=== PATIENT | male | born 1980 | race Caucasian/White ===

== ENCOUNTER 2018-02-15 09:53 | Day surgery (SDC) | payer MEDICAID, SELFPAY ==
[2018-02-15 10:04] VITALS: BP 113/74; PULSE 60; RESP 16; TEMP 35.9; O2SAT 99
[2018-02-15] MEDS: Lactated Ringers 1,000 ML 30 ML IV (10:15)
--- NOTE | 2018-02-15 11:15 | W.PM.DSUDISC ---
Discharge Plan Disposition Patient Disposition: HOME Condition: Good Discharge Details Reason For Visit: Weight loss, abdominal pain, nausea, and vomiting Attending Provider: Donovan Alonzo Primary Care Provider: Rhonda Bardales Home Meds and New Rx's Prescriptions: Continue loperamide [Imodium A-D] 2 MG capsule 2 mg PO QID PRN RF: 0 ondansetron HCl [Zofran] 4 MG tablet 4 mg PO PRN RF: 0 diphenhydramine HCl [Benadryl] 25 MG capsule 25 mg PO prn q 6 hrs PRNRF: 0 simethicone 80 MG tablet,chewable 80 mg PO q 6 hrs RF: 0 Discharge Instructions Instructions: Colonoscopy (DC), Upper Endoscopy (DC) Activity:: Activity as Tolerated Diet:: As Tolerated Discharge Orders Discharge Orders: Discharge Order (Routine); Ordered 02/15/18 Ordered By: Donovan Alonzo DS: Diagnosis Discharge Diagnosis (1) Nausea and vomiting in adult: Status: Acute Asessment and Plan: Upper endoscopy planned (2) Chronic generalized abdominal pain: Status: Acute Asessment and Plan: colonoscopy planned (3) Weight loss: Status: Acute Asessment and Plan: Endoscopy planned
--- NOTE | 2018-02-15 11:21 | COLE_ITS ---
Date of service: 02/15/18 Time of Service: 11:20 Colonoscopy Report Date of procedure: 02/15/18 Pre-op diagnosis general: Abdominal pain, nausea, and pain Post-op diagnosis procedure note: same Procedure: 1. Esophagogastroduodenoscopy with biopsies by cold forceps 2. Colonoscopy with biopsies by cold forceps Surgeon: Donovan Alonzo Anesthesia proc note operative: MAC (CYNDEE Pineda ASA 2; Mallampati class: II) Estimated blood loss (mL): 1 Pathology: other (1. Duodenal bx 2. Gastric antral bx 3. Mid esophageal bx 4. Terminal ileum bx, 5. Random Colon bx 6. Random rectum.) Complications: None Disposition: same day Indications: 37 y/o gentleman who has had over a year of daily abdominal with associated nausea and vomiting, which has led to weight loss. The abdominal pain is relieved by having a bowel movement. He has tried antiemetics with little relief, It is made worse by lactose, and many other dietary claude. He has had endoscopy in the past, which was unremarkable by his report. Associated symptoms: Reports diarrhea, vomiting, and weight loss. It was recommended that he have upper and lower endoscopy with biopsies to rule out any GI etiology to her symptoms. The procedures were reviewed with him and the associated risks discussed. All his questions were answered to his satisfaction consent was obtained to proceed with upper and lower endoscopy. Prep: Miralax/Dulcolax (Prep quality excellent) Findings: In examining the upper gastrointestinal tract from the oropharynx to the third portion of the duodenum, no gross abnormalities were visualized; biopsies were taken from the duodenum, stomach, and esophagus. The colon was examined from the cecum to the anus, and a small portion of the terminal ileum was visualized. No gross abnormalities were noted during the examination. Random biopsies were taken from the terminal ileum, colon, and rectum which were submitted for pathology. Procedure Description: The patient was brought to the procedure room. Monitoring for telemetry, end- tidal CO2, O2 saturation, blood pressure were applied. An appropriate timeout was taken reviewing the patient's identification, allergies, medications,and procedure. Sedation was titrated for effect by the [employer]. The upper endoscopy was performed first. An Olympus variable stiffness endoscope was advanced from the oropharynx to the third portion of the duodenum without difficulty. The scope was then withdrawn in circumferential manner from the duodenum back to the oropharynx. In performing withdrawal of the scope , the duodenum appeared grossly normal. The scope was withdrawn into the gastric antrum and retroflexed to examine the entire stomach, and no abnormalities of the gastric antrum, anterior, posterior surfaces of the stomach , lesser curvature, greater curvature, and fundus were noted. The scope was then withdrawn to the GE junction which I measured at 38cm The Z line was at 38 cm and appeared regular. I withdrew the scope through the remainder of the esophagus all which appeared grossly normal. I did take random biopsies of the duodenum, gastric antrum, and mid esophagus during the procedure which were submitted to for pathology. The scope was then withdrawn terminating the upper endoscopy. The patient was then repositioned for colonoscopy. Sedation was titrated for effect again. Once adequate sedation was achieved, I performed a inspection of the external perineum, and a digitial rectal examination. No significant external abnormalities were noted. On digital rectal examination, there was no blood, no masses, good rectal tone. I advanced the colonoscope from the anus to the cecum under direct visualization. The cecum was identified by the ileal-cecal valve, and the appendiceal orifice. The ileocecal valve was intubated, and the small bowel ( terminal ileum) was examined for about 15 cm. Random biopsies were taken from the terminal ileum. The scope was then withdrawn in back into the cecum, and subsequently withdrawn in a circumferential manner from the cecum to the rectum. No abnormalites were noted in the colon; random biopsies were taken throughout the colon.. The scope was then withdrawn into the rectum, and retroflexed. No abnormalities were noted of the rectum or anorectal junction, again random biopsies were taken through of the rectum for pathology.. The scope was then withdrawn, terminating the procedure. There were no complications during the procedure, and the patient tolerated the procedure well. The patient was returned to the day surgery recovery area in good condition. Plan: We will await pathology results before making further recommendations.
--- NOTE | 2018-02-15 11:45 | BOWEL_PTH ---
PATIENT: Philip Allred LOC: [facility] U#:[id number] AGE/SX: 37/M ROOM: RE02/15/[address]: Donovan Alonzo DO : 1980 BED: DIS: 02/15/2018 SPEC #: [id number] RECD: 02/15/18 17:48 STATUS: ÁNGELA REQ #: [id number] JOSY: 02/15/18 11:[address]: Donovan Alonzo DEPT: Surgical Specimen RECD BY: Eloise Love ENTERED: 02/15/18 17:50 SP TYPE: Bowel OTHR DR: Rhonda Bardales Tissues: 1 - BIOPSY BOWEL 2 - STOMACH BIOPSY 3 - ESOPHAGUS BIOPSY 4 - BIOPSY BOWEL 5 - BIOPSY BOWEL 6 - BIOPSY BOWEL Procedures: GROSS AND MICRO LEVEL 4 Comments: [id number]
[2018-02-15 12:45] VITALS: BP 138/61; PULSE 68; RESP 17; TEMP 36.7; O2SAT 97
[2018-02-15 12:50] VITALS: BP 127/61; PULSE 64; RESP 18; O2SAT 100
[2018-02-15 12:55] VITALS: BP 132/65; PULSE 62; RESP 18; O2SAT 100
[2018-02-15 13:00] VITALS: BP 128/61; PULSE 55; RESP 12; O2SAT 100
[2018-02-15 13:55] VITALS: BP 108/66; PULSE 62; RESP 16; TEMP 37; O2SAT 99
== END 2018-02-15 14:23 | disposition home or self-care (01) ==
PROVIDERS: PCP Emergency Medicine; Visit Provider Surgery
PROC: (CPT 43239; principal; 2018-02-15 12:00)
DX: R10.9 Unspecified abdominal pain (principal); R11.0 Nausea
CPT/HCPCS: 43239; 45380; 88305

== ENCOUNTER 2018-05-17 11:28 | Emergency (ER) | payer MEDICAID, SELFPAY ==
[2018-05-17 11:30] VITALS: BP 128/68; PULSE 77; RESP 20; TEMP 37.2; O2SAT 99
[2018-05-17] MEDS: Normal Saline 1,000 ML 1000 ML IV ×2 (11:49→12:57)
--- NOTE | 2018-05-17 11:52 | DI.RAD_ITS ---
SYMPTOM/DIAGNOSIS: COUGH, FEVER PA AND LATERAL CHEST: There are no prior comparison exams. The cardiac and mediastinal contours have a normal appearance. The lungs are mildly hyperinflated which could indicate asthma or COPD. No focal infiltrate or effusion is seen. IMPRESSION: Hyperinflation. No acute infiltrate.
[2018-05-17] MEDS: Ibuprofen 600 MG TAB PO (11:54)
[2018-05-17] MEDS: Acetaminophen 500 MG TAB 1000 MG PO (11:54)
[2018-05-17] MEDS: Benzonatate 100 MG CAP PO (11:54)
[2018-05-17] MEDS: Ondansetron O.D.T. 4 MG TABEF PO (11:55)
[2018-05-17 11:56] LABS: Abs Immature Grans 0.01 k/cumm (0.0-0.09); Absolute Basophil Count 0.01 k/cumm (0.0-0.2); Absolute Lymphocyte Count 0.58 k/cumm (1.2-3.4); Absolute Monocyte Count 0.99 k/cumm (0.11-0.7); Absolute Neutrophil Count 5.82 k/cumm (1.2-6.7); Basophils % 0.1; HCT 44.3 % (40.0-50.0); HGB 15.7 g/dL (13.5-17.5); Immature Grans % 0.1; Lymphocytes % 7.8; Mean Corp. HGB Concentration 35.4 g/dL (32.0-36.0); Mean Corpuscular Hemoglobin 31.5 pg (27.0-33.0); Mean Platelet Volume 10.4 fL (8.0-11.0); Monocytes % 13.4; Neutrophils % 78.6; Platelet Count 162 x1000/uL (130-400); RBC 4.98 m/cumm (4.50-6.00); RBC Distribution Width 12.9 % (11.8-14.1); White Blood Cell Count 7.41 k/cumm (4.4-10.8)
[2018-05-17 12:09] LABS: ALT 24 U/L (12-78); AST 24 U/L (15-37); Albumin 4.5 g/dL (3.4-5.0); Alkaline Phosphatase 66 U/L (46-116); BUN 18 mg/dL (7-18); Bilirubin, Total 0.7 mg/dL (0.2-1.0); CREATININE 1.56 mg/dL (0.70-1.30); Calcium 9.7 mg/dL (8.5-10.1); Chloride 98 mmol/L (98-107); Estimated GFR 50.06 (mL/min/1.73m2); Glucose 102 mg/dL (70-100); Potassium 3.5 mmol/L (3.5-5.1); Sodium 139 mmol/L (136-145)
[2018-05-17 12:13] VITALS: RESP 16
--- NOTE | 2018-05-17 12:15 | ED.GENADUL_ITS ---
Discharge Plan Disposition Patient Disposition: HOME Condition: Stable Discharge Details Chief Complaint: GenMedical Clinical Impression: Influenza A Reason For Visit: ANGELO Primary Care Provider: Harleen Bardales ED Provider: Roberto Cortez Home Meds and New Rx's Prescriptions: New benzonatate 200 mg capsule 200 mg PO TID PRN (Reason: cough) Qty: 30 RF: 0 ondansetron 4 mg tablet,disintegrating 4 mg PO TID PRN (Reason: nausea and vomiting) Qty: 10 RF: 0 Continued loperamide [Imodium A-D] 2 MG capsule 2 mg PO QID PRN RF: 0 diphenhydramine HCl [Benadryl] 25 MG capsule 25 mg PO prn q 6 hrs PRNRF: 0 simethicone 80 MG tablet,chewable 80 mg PO q 6 hrs RF: 0 Discontinued ondansetron HCl [Zofran] 4 MG tablet 4 mg PO PRN RF: 0 Discharge Instructions Instructions: Influenza (ED) Additional Instructions: During viral illness please stay well-hydrated and get plenty of rest. Feel free to return for any significant worsening of your symptoms otherwise follow- up with your primary care provider for reassessment. For fever or body aches you may take 600 mg ibuprofen along with 650 mg of Tylenol together every 6 hours as needed. Referrals: Harleen Bardales MD [Primary Care Provider] - (As needed for reassessment) Medical Decision Making Patient presenting to the emergency department for flulike symptoms. He states that his girlfriend was recently admitted for similar symptoms. He states that he began running a fever approximately 5 days ago and has had continuing and p rogressing symptoms including cough, fever chills body aches, headache, malaise, vomiting. Concern for influenza with secondary electrolyte abnormalities and/or dehydration so plan to give IV fluids, check labs, and give symptomatic medications. Patient given Tylenol, Motrin, Tessalon Perles, Zofran Review of labs shows signs of dehydration and positive influenza otherwise nondiagnostic. Patient reassessed and states significant improvement of symptoms and patient is now afebrile after 2 L of fluids. Given the patient is improving feels comfortable going home I feel the patient can safely be discharged follow-up with primary care return for new or worsening symptoms. Patient was encouraged to stay well-hydrated during illness. Patient prescribed Tessalon Perles and Zofran and instructed on [id number] use of Tylenol and Motrin. Given that patient has had symptoms for greater than 48 hours I see little benefit to giving patient Tamiflu but I did discuss this with patient. After discussion of diagnosis and plan of care patient has no further needs, questions, or concerns and states clear understanding to return to the emergency department for any worsening symptoms. ECG Data Interpretation: Sinus rhythm, rate of 82, no acute ST changes HPI General Mode of arrival: EMS . Date/Time Provider Initiated Documentation: 05/17/18 11:39 . Limitations to Documentation: no limitations . Information obtained by: patient and RN notes reviewed . History of Present Illness 37 year old M presents to the emergency department with the chief complaint of Flulike symptoms, described as moderate, with intensity rated at 4. Quality is described as aching, and is localized to the abdomen. Patient reports no radiation. Patient started experiencing this day(s) (5) and it has been constant. Patient notes no other symptoms.. Patient did receive the following treatments prior to arrival, other (Robitussin-DM last night) Related Data Home Medications Medication Instructions Recorded Confirmed diphenhydramine HCl [Benadryl] 25 mg PO prn q 6 hrs PRN 01/11/18 02/11/18 loperamide [Imodium A-D] 2 mg PO QID PRN 01/11/18 02/11/18 simethicone 80 mg PO q 6 hrs tab.chew 01/11/18 02/11/18 benzonatate 200 mg PO TID PRN #30 cap 05/17/18 ondansetron 4 mg PO TID PRN #10 tab 05/17/18 Previous Rx's Medication Instructions Recorded benzonatate 200 mg PO TID PRN #30 cap 05/17/18 ondansetron 4 mg PO TID PRN #10 tab 05/17/18 Allergies Allergy/AdvReac Type Severity Reaction Status Date / Time ibuprofen AdvReac Intermediate porphyria Verified 02/15/18 10:03 sulfamethoxazole AdvReac Intermediate porhyria Verified 02/15/18 10:03 [From Bactrim] trimethoprim [From Bactrim] AdvReac Intermediate porhyria Verified 02/15/18 10:03 General Stated Complaint: GenMedical ALAN: 3 Review of Systems Constitutional Reports body ache(s), Reports chills, Reports fever(s), Reports headache(s) and Reports malaise Eyes Denies eye discharge ENT Reports as per HPI, Denies otalgia, Reports headache(s), Reports nasal congestion, Denies neck pain, Reports sinus pressure and Denies throat swelling Cardiovascular Denies chest pain, Reports rapid heart rate, Reports palpitations and Denies dyspnea Respiratory Reports chest congestion, Reports cough, Reports pain with cough and Denies dyspnea Gastrointestinal Reports abdominal pain, Denies diarrhea, Reports nausea and Reports vomiting Musculoskeletal Denies joint swelling and Denies neck pain Integumentary/Breasts Denies rash Neurologic Reports headache(s) Endocrine Reports palpitations Allergic/Immunologic Denies throat swelling [facility] Medical History Normal colonoscopy (Resolved 02/15/18) Porphyria Schizophrenia Unintentional weight loss Surgical History History of esophagogastroduodenoscopy (EGD) (Resolved 02/15/18) Social History Smoking/Tobacco Use Status: Never alcohol intake: never substance use type: marijuana Exam Const General: cooperative, comfortable and no acute distress Orientation: alert and awake [facility] Head: normal to inspection, normocephalic and atraumatic Ears: hearing grossly normal bilaterally and TM's normal bilaterally General nose exam: external nose normal Face and sinus: normal facial exam and no erythema Mouth: oral mucosae normal, no drooling, no muffled voice and no trismus Throat: posterior oropharynx normal, tonsils normal and uvula midline Neck Neck: normal visual inspection, full ROM, no lymphadenopathy, no meningeal signs, trachea midline and supple Resp Effort & Inspection: normal respiratory effort, able to speak in complete sentences and cough Quality of cough: dry Auscultation: clear to auscultation bilaterally Cardio Rate: regular rate Rhythm: regular rhythm Heart Sounds: S1 normal, S2 normal, normal S1 and S2, no click, no gallops, no murmurs and no rubs GI Inspection: normal to inspection Palpation: soft and no hepatosplenomegaly Auscultation: normal bowel sounds Skin General skin exam: no rashes or lesions noted and dry skin (warm) Neuro General: alert, awake, oriented x3, gait normal and moves all extremities Cognition: normal cognition Speech: speech normal Course Vital Signs Temperature 37.2 C 05/17/18 11:30 Pulse 77 05/17/18 11:30 Respiratory Rate 20 05/17/18 11:30 Blood Pressure 128/68 05/17/18 11:30 Pulse Oximetry 99 05/17/18 11:30 Temperature 37.2 C 05/17/18 11:30 Temperature Source Temporal Artery Scan 05/17/18 11:30 Pulse 77 05/17/18 11:30 Respiratory Rate 20 05/17/18 11:30 Respiratory Effort Non-Labored 05/17/18 12:13 Blood Pressure 128/68 05/17/18 11:30 Blood Pressure Position Sitting 05/17/18 11:30 Pulse Oximetry 99 05/17/18 11:30 Oxygen Delivery Method Room Air 05/17/18 11:30 Oxygen Flow Rate 0 05/17/18 11:30 Pain Level 0 05/17/18 11:30 Lab/Test Results Lab/Test Results: 05/17/18 11:34 Nasopharynx Influenza Types A,B Antigen - Final Laboratory Tests Range/Units 05/17/18 05/17/18 11:42 11:42 WBC (4.4-10.8) k/cumm 7.41 RBC (4.50-6.00) m/cumm 4.98 Hgb (13.5-17.5) g/dL 15.7 Hct (40.0-50.0) % 44.3 MCV (80-95) fL 89.0 MCH (27.0-33.0) pg 31.5 MCHC (32.0-36.0) g/dL 35.4 RDW (11.8-14.1) % 12.9 Plt Count (130-400) x1000/uL 162 MPV (8.0-11.0) fL 10.4 Immature Gran % 0.1 Neutrophils % 78.6 Lymphocytes % 7.8 Monocytes % 13.4 Eosinophils % 0.0 Basophils % 0.1 Absolute Neutrophils (1.2-6.7) k/cumm 5.82 Absolute Lymphocytes (1.2-3.4) k/cumm 0.58 L Absolute Monocytes (0.11-0.7) k/cumm 0.99 H Absolute Eosinophils (0.0-0.7) k/cumm 0.00 Absolute Basophils (0.0-0.2) k/cumm 0.01 Sodium (136-145) mmol/L 139 Potassium (3.5-5.1) mmol/L 3.5 Chloride (98-107) mmol/L 98 Carbon Dioxide (21.0-32.0) mmol/L 26.0 Anion Gap (3-11) mmol/L 15.0 H BUN (7-18) mg/dL 18 Creatinine (0.70-1.30) mg/dL 1.56 H Estimated GFR/1.73 m2 (mL/min/1.73m2) 50.06 Glucose (70-100) mg/dL 102 H Calcium (8.5-10.1) mg/dL 9.7 Total Bilirubin (0.2-1.0) mg/dL 0.7 AST (15-37) U/L 24 ALT (12-78) U/L 24 Alkaline Phosphatase (46-116) U/L 66 Total Protein (6.4-8.2) g/dL 8.0 Albumin (3.4-5.0) g/dL 4.5
[2018-05-17 12:18] VITALS: TEMP 38.7
--- NOTE | 2018-05-17 12:53 | DI.VRAD_ITS ---
EXAM: XR Chest, 2 Views EXAM DATE/TIME: 05/17/2018 12:27 PM CLINICAL HISTORY: 37 years old, male; Signs and symptoms; Cough and fever; Patient HX: Cough/fever TECHNIQUE: XR of the chest, 2 views. COMPARISON: No relevant prior studies available. FINDINGS: Lungs: Unremarkable. No consolidation. Pleural space: Unremarkable. No pleural effusion. No pneumothorax. Heart/Mediastinum: Unremarkable. No cardiomegaly. Bones/joints: Unremarkable. IMPRESSION: 1. The lungs are hyperaerated and hyperlucent with increase in the retrosternal airspace. 2. Changes of reactive airway disease, COPD versus possible asthma. COMMENT: Preliminary interpretation is based on receipt of 3 image(s). A final report will be issued subsequently. Dictated and Authenticated by: Dilma Caballero MD. Ordering:CARMEN Mejia MD
[2018-05-17 13:55] VITALS: BP 116/66; PULSE 61; RESP 14; TEMP 37.1; O2SAT 99
== END 2018-05-17 13:56 | disposition home or self-care (01) ==
PROVIDERS: Emergency Provider Nurse Practitioner Family; PCP Family Medicine
DX: J11.1 Influenza due to unidentified influenza virus with other respiratory manifestations (principal); R00.0 Tachycardia, unspecified
CPT/HCPCS: 36415; 80053; 87449; 93005; 96360; 96361; 99284; 71046; 85025; 93010

== ENCOUNTER 2019-09-22 00:19 | Emergency (ER) | payer MEDICAID, SELFPAY ==
[2019-09-22 00:24] VITALS: BP 126/55; PULSE 72; RESP 16; TEMP 37.2; O2SAT 97
--- NOTE | 2019-09-22 00:40 | ED.GENADUL_ITS ---
Discharge Plan Disposition Patient Disposition: HOME Condition: Good Discharge Details Chief Complaint: Abd Prob Clinical Impression: Rectal bleed Primary Care Provider: Harleen Bardales ED Provider: Sudheer Gregg Home Meds and New Rx's Prescriptions: No Action No Known Home Meds RF: 0 Discharge Instructions Instructions: Rectal Bleeding (ED) Additional Instructions: At this time your hemoglobin and blood levels are normal. There is no evidence of bleeding currently. Please avoid any spicy foods. Monitor your bowel movements closely. We will schedule follow-up with surgery for you. You will be contacted by their office. If you notice any worsening of your symptoms, or any new symptoms such as vomiting, diarrhea, fever, chills, shortness of breath, chest pain, numbness, weakness, or fainting , please return immediately to the emergency department for reevaluation. Please follow up with your primary care provider as soon as possible for reassessment and reevaluation. As always, it was a pleasure participating in your medical care today. Referrals: Ara Magdaleno MD [ [facility] STAFF PHYSICIAN] - Capri Naranjo MD [ [facility] STAFF PHYSICIAN] - Danni Singleton DO [OSTEOPATHIC DOCTOR] - Medical Decision Making 39-year-old male with a history of chronic abdominal pain secondary porphyria, with multiple negative work-ups and colonoscopies presents for bright red blood per rectum. He states that he has had small amounts of bright red blood for the last year, he has had one episode earlier today which was notably larger than normal, this occurred while moving furniture, the repeat episode tonight. He denies any syncope lightheadedness or history of bleeding diatheses. He denies any change in abdominal pain, denies any abdominal tenderness at this time. No food changes, or other complaints. Exam demonstrates a notably nonsurgical abdomen, vital signs are unremarkable with no evidence of tachycardia or hypotension. Rectal exam demonstrates no evidence of searing or burning pain, no blood on digital rectal exam, and a negative stool Hemoccult. Differential includes potential ruptured hemorrhoid which no longer be visualized, less likely Crohn's or ulcerative colitis. At this time with an unremarkable exam, stable vital signs, will get laboratory work-up to evaluate for any signs of anemia. Recommend outpatient surgical follow-up with 1 of her surgeons here. We did discuss radiographic imaging, and at this time through shared decision making process we will hold off on any additional imaging at this time. 1:37 AM Laboratory work-up is returned, no significant abnormalities, hemoglobin stable, no signs of anemia. No white count, no left shift or bandemia. Electrolytes stable. Renal function good, no atypical BUN/creatinine level to suggest upper GI bleed. Coagulation factors within normal limits. Stool Hemoccult negative for any evidence of blood. Patient still remains asymptomatic, vital signs stable. This time his symptoms may have been from mild ruptured hemorrhoid, less likely small ulcer. We will schedule outpatient follow-up with surgery. Patient with like to hold off on imaging at this time otherwise. I do feel that a colonoscopy outpatient would certainly be beneficial. With no signs of acute life-threatening bleed, stable hemodynamics, patient will be discharged. I have extensively reviewed the treatment plan and discharge instructions with the patient. I have addressed all patient concerns at this time. The patient was made aware of what symptoms to monitor for that would warrant a return to the emergency department. Discussed the plan with the patient, they demonstrate verbal understanding and agreement with our assessment and plan at this time. HPI General Date/Time Provider Initiated Documentation: 09/22/19 00:26 . HPI Narrative: 39-year-old male with a past medical history of porphyria, chronic generalized abdominal pain, schizophrenia, who presents today for evaluation of bright red blood per rectum. Patient states that for the last year he has had small amounts of bright red blood occasionally in his stool. Patient states showed intermittent small amounts of bright red blood per rectum for the last year, however today while moving some furniture he noticed a slightly larger amount of bright red blood without a bowel movement, no associated significant cramping pain or burning. And then later this evening he went to have a bowel movement and noticed that it was all bright red blood. Mild amount. No significant pain or other abnormalities at this time. He has had previous colonoscopies, states that the most recent one was a year ago and it was unremarkable. Per our records we have 1 from 2017 which all biopsies were also negative at that time. He states that he has had significant testing on an outpatient basis at other facilities including in [facility] to evaluate for ulcerative colitis, Crohn's, celiac sprue, all of which is negative. He does admit to some mild fatigue, but denies any other complaints. He denies any vomiting, rectal burning tearing or searing pain, fever, chills, change in his chronic abdominal crampiness whatsoever, or other complaints. Patient has had no more rectal bleeding this evening, denies any history of bleeding diatheses. He denies fever, chills, headache, numbness tingling weakness chest pain shortness of breath. Related Data Home Medications Medication Instructions Recorded Confirmed Unknown [No Known Home Meds] 09/22/19 09/22/19 Allergies Allergy/AdvReac Type Severity Reaction Status Date / Time ibuprofen AdvReac Intermediate porphyria Verified 02/15/18 10:03 sulfamethoxazole AdvReac Intermediate porhyria Verified 02/15/18 10:03 [From Bactrim] trimethoprim [From Bactrim] AdvReac Intermediate porhyria Verified 02/15/18 10:03 General Stated Complaint: Abd Prob ALAN: 3 Review of Systems All systems reviewed & are unremarkable except as noted in HPI and below PFSH Medical History Normal colonoscopy (Resolved 02/15/18) Dr Alonzo, repeat at 49 years of age Porphyria Schizophrenia Unintentional weight loss Surgical History History of esophagogastroduodenoscopy (EGD) (Resolved 02/15/18) Dr Alonzo, mild reactive changes in stomach, referred back to pcp for further workup, repeat PRN Social History Smoking/Tobacco Use Status: Never Alcohol Intake: never Drug use: Occasionally Substance use type: marijuana Do you feel safe at home: Yes Do you feel safe in your relationship?: Yes Exam Narrative Exam Narrative: 1.Const: Well-nourished, Well-developed, appearing stated age 2.Eyes: PERRL, no conjunctival injection, and symmetrical lids. 3.ENT: Atraumatic external nose and ears. Moist MM. Neck: Symmetric, trachea midline, No thyromegaly. 4.CVS: +S1/S2, No murmurs or gallops. Peripheral pulses 2+ and equal in all extremities. Brisk capillary refill in all extremities. 5.RESP: Unlabored respiratory effort. Clear to auscultation bilaterally. No wheezes rales or rhonchi 6.GI: Soft, Nontender/Nondistended, No hepatosplenomegaly. No guarding or rebound. No signs of an acute surgical abdomen whatsoever. Rectal exam was performed with female nurse Isis at bedside. Rectal exam demonstrates no evidence of significant current hemorrhoids. No evidence of bleeding whatsoever at this time. No searing or burning sensation during digital rectal exam. No melena. Stool Hemoccult was negative. 7.MSK: Normocephalic/Atraumatic, Extremities w/o deformity or ttp No cyanosis or clubbing, Normal movement of all extremities 8.Skin: Warm, Dry. No rashes or lesions. 9.Neuro: quill winder II-XII grossly intact. Sensation grossly intact, no focal neurologic deficits. 10.Psych: (AAO) x3. Appropriate mood and affect Course Vital Signs Vital signs: Vital Signs Temperature 37.2 C 09/22/19 00:24 Pulse 72 09/22/19 00:24 Respiratory Rate 16 09/22/19 00:24 Blood Pressure 126/55 L 09/22/19 00:24 Pulse Oximetry 97 09/22/19 00:24 Temperature 37.2 C 09/22/19 00:24 Temperature Source Skin 09/22/19 00:24 Pulse 72 09/22/19 00:24 Respiratory Rate 16 09/22/19 00:24 Blood Pressure 126/55 L 09/22/19 00:24 Blood Pressure Position Sitting 09/22/19 00:24 Pulse Oximetry 97 09/22/19 00:24 Oxygen Delivery Method Room Air 09/22/19 00:24 Oxygen Flow Rate 0 09/22/19 00:24 Pain Level 4 09/22/19 00:24
[2019-09-22 00:55] LABS: Abs Immature Grans 0.02 k/cumm (0.0-0.09); Absolute Basophil Count 0.03 k/cumm (0.0-0.2); Absolute Eosinophil Count 0.49 k/cumm (0.0-0.7); Absolute Lymphocyte Count 3.96 k/cumm (1.2-3.4); Absolute Neutrophil Count 4.79 k/cumm (1.2-6.7); Basophils % 0.3; Eosinophils % 4.8; HCT 39.7 % (40.0-50.0); Immature Grans % 0.2 %; Lymphocytes % 38.5; Mean Corp. HGB Concentration 35.3 g/dL (32.0-36.0); Mean Corpuscular Hemoglobin 31.5 pg (27.0-33.0); Mean Corpuscular Volume 89.4 fL (80-95); Mean Platelet Volume 10.1 fL (8.0-11.0); Monocytes % 9.7; Neutrophils % 46.5; Platelet Count 253 x1000/uL (130-400); RBC 4.44 m/cumm (4.50-6.00); RBC Distribution Width 12.4 % (11.8-14.1); White Blood Cell Count 10.29 k/cumm (4.4-10.8)
[2019-09-22 00:58] LABS: Anion Gap 7.4 mmol/L (3-11); BUN 13 mg/dL (7-18); CO2 31.6 mmol/L (21.0-32.0); CREATININE 1.15 mg/dL (0.70-1.30); Calcium 8.8 mg/dL (8.5-10.1); Chloride 101 mmol/L (98-107); Glucose 95 mg/dL (74-106); Potassium 3.3 mmol/L (3.5-5.1); Sodium 140 mmol/L (136-145)
--- NOTE | 2019-09-22 01:14 | NUR.NOTE ---
Nursing Note:FAXED REFERAL TO [id number] 09/22/2019
[2019-09-22 01:30] LABS: INR 1.1 (0.9-1.1); PTT Activated 28.9 sec (21.0-31.4); Prothrombin Time 10.8 sec (9.3-11.0)
[2019-09-22 01:43] VITALS: BP 105/56; PULSE 67; RESP 16; TEMP 36.6; O2SAT 98
== END 2019-09-22 01:40 | disposition home or self-care (01) ==
PROVIDERS: Emergency Provider Student in an Organized Health Care Education/Training Program; PCP Family Medicine
DX: K62.5 Hemorrhage of anus and rectum (principal); R10.84 Generalized abdominal pain; G89.29 Other chronic pain; E80.20 Unspecified porphyria
CPT/HCPCS: 36415; 80048; 86850; 86900; 86901; 99283; 85025; 85610; 85730

== ENCOUNTER 2023-01-26 04:19 | Emergency (ER) | payer MEDICAID, SELFPAY ==
[2023-01-26 04:22] VITALS: BP 134/72; PULSE 61; RESP 17; TEMP 36.7; O2SAT 98
--- NOTE | 2023-01-26 04:32 | ED.GENADUL_ITS ---
Discharge Plan Disposition Patient Disposition: Home Condition: Stable Discharge Details Chief Complaint: Abd Prob Clinical Impression: Bright red rectal bleeding Primary Care Provider: Harleen Bardales ED Provider: Yeison Cohen Home Meds and New Rx's Prescriptions: No Action No Known Home Meds Discharge Instructions Additional Instructions: Your blood work did not show concerning findings at this time Follow up with your primary care provider within 1-2 weeks if you feel more ill, have severe abdominal pain or difficulty breathing return to the emergency department Medical Decision Making 42 yo male who states he has a hx of porphyria and once a month has blood from his rectum, comes in with blood from his rectum since yesterday and feels it is more blood then normal. Denies fevers, chills, abdominal pain, n/v, chest pain, dyspnea. HE is stable on arrival, does have dried blood just outside the rectum, no active bleeding, stool is brown. No abdominal tenderness. Suspect internal hemorrhoids vs avm, no external hemorrhoids. Will obtain cbc, cmp and coags and monitor. Given lack of abdominal pain do not feel CT indicated at this time labs unremarkable, no anemia. HE had a bowel movement here with no blood and he has no abdominal pain or tenderness still. Discussed results with him and given he is asymptomatic and no longer having bleeding he feels well enough with d/c. He was offered general surgery referral but he declined stating they have done a bunch of colonscopies and never find anything. Return precautions given Differential Diagnosis Differential Diagnosis: hemorrhoid, avm Medical Records Medical records reviewed: Yes I reviewed the patient's medical records. Lab Data Lab results reviewed: Yes I reviewed the patient's lab results. HPI General Mode of arrival: ambulatory . Date/Time Provider Initiated Documentation: 01/26/23 04:21 . Limitations to Documentation: no limitations . Information obtained by: patient . History of Present Illness 42 year old M presents to the emergency department with the chief complaint of bright red blood per rectum, described as moderate, Patient reports no radiation. Eliot perez started experiencing this day(s) (1) and it has been intermittent. No relieving factors improve symptom(s), No exacerbating factors reported . Patient notes no other symptoms.. Patient did receive the following treatments prior to arrival, none Related Data Home Medications Medication Instructions Recorded Confirmed Unknown [No Known Home Meds] 09/22/19 09/22/19 Allergies Allergy/AdvReac Type Severity Reaction Status Date / Time ibuprofen AdvReac Intermediate porphyria Verified 02/15/18 10:03 sulfamethoxazole AdvReac Intermediate porhyria Verified 02/15/18 10:03 [From Bactrim] trimethoprim [From Bactrim] AdvReac Intermediate porhyria Verified 02/15/18 10:03 General Stated Complaint: Abd Prob ALAN: 3 Review of Systems All systems reviewed & are unremarkable except as noted in HPI and below Constitutional Constitutional: Denies chills, Denies fever(s) and Denies weakness Cardiovascular Cardiovascular: Denies chest pain and Denies dyspnea Respiratory Respiratory: Denies cough and Denies dyspnea Gastrointestinal Gastrointestinal: Denies abdominal pain, Denies nausea and Denies vomiting Genitourinary Genitourinary: Denies dysuria Musculoskeletal Musculoskeletal: Denies joint swelling Integumentary/Breasts Skin/Breast: Denies rash Neurologic Neurologic: Denies weakness Endocrine Endocrine: Denies cold intolerance PFSH All Active Problems (Updated 01/26/23 @ 05:28 by Yeison Cohen MD) Bright red rectal bleeding (Acute) Weight loss (Acute) Nausea and vomiting in adult (Acute) Chronic generalized abdominal pain (Acute) Medical History (Updated 01/26/23 @ 05:28 by Yeison Cohen MD) Normal colonoscopy (02/15/18) Dr Alonzo, repeat at 49 years of age Porphyria Schizophrenia Unintentional weight loss Surgical History History of esophagogastroduodenoscopy (EGD) (02/15/18) Dr Alonzo, mild reactive changes in stomach, referred back to pcp for further workup, repeat PRN Social History Smoking/Tobacco Use Status: Never Smoking risk assessment performed?: Yes Alcohol Intake: never Drug use: Occasionally Substance use type: marijuana Do you feel safe at home: Yes Do you feel safe in your relationship?: Yes Exam Const General: no acute distress Orientation: alert HENMT Head: normal to inspection Ears: external ears normal General nose exam: external nose normal Mouth: moist mucous membranes Eyes General: appearance normal, both eyes and all related structures Neck Neck: normal visual inspection Resp Effort & Inspection: normal respiratory effort and able to speak in complete sentences Cardio Rate: regular rate GI Palpation: soft and nontender Skin General skin exam: no rashes or lesions noted Neuro General: patient alert and patient oriented x3 Extrem General: normal to inspection Psych Mental Status: mental status grossly normal Course Vital Signs Vital signs: Vital Signs Temperature 36.7 C 01/26/23 04:22 Pulse 61 01/26/23 04:22 Respiratory Rate 17 01/26/23 04:22 Blood Pressure 134/72 01/26/23 04:22 Pulse Oximetry 98 01/26/23 04:22 Temperature 36.7 C 01/26/23 04:22 Temperature Source Oral 01/26/23 04:22 Pulse 61 01/26/23 04:22 Respiratory Rate 17 01/26/23 04:22 Respiratory Effort Normal 01/26/23 04:26 Blood Pressure 134/72 01/26/23 04:22 Blood Pressure Position Sitting 01/26/23 04:22 Pulse Oximetry 98 01/26/23 04:22 Oxygen Delivery Method Room Air 01/26/23 04:22 Oxygen Flow Rate 0 01/26/23 04:22
[2023-01-26 04:41] LABS: Abs Immature Grans 0.02 10^3/uL (0.0-0.06); Absolute Basophil Count 0.04 10^3/uL (0.0-0.2); Absolute Eosinophil Count 0.37 10^3/uL (0.0-0.7); Absolute Neutrophil Count 6.08 10^3/uL (1.2-6.7); Basophils % 0.4; Eosinophils % 3.7; HGB 14.8 g/dL (13.5-17.5); Immature Grans % 0.2; MCH 30.8 pg (27.0-33.0); MCHC 34.4 % (32.0-36.0); MCV 90 fL (80-95); MPV 9.9 fL (8.0-11.0); Neutrophils % 60.7; Platelet Count 270 10^3/uL (130-400); RDW 12.4 % (11.8-14.1); RDW-SD 41.1 fL; WBC 10.01 10^3/uL (4.4-10.8)
[2023-01-26 04:57] LABS: PTT Activated 30.3 sec (21.5-31.9); Prothrombin Time 9.7 sec (9.3-11.0)
[2023-01-26 04:58] LABS: ALT 13 U/L (16-63); AST 10 U/L (15-37); Albumin 4.2 g/dL (3.4-5.0); Alkaline Phosphatase 111 U/L (46-116); Anion Gap 7.4 mmol/L (3-11); BUN 14 mg/dL (7-18); Bilirubin, Total 0.5 mg/dL (0.2-1.0); CO2 29.6 mmol/L (21.0-32.0); Calcium 8.8 mg/dL (8.5-10.1); Chloride 103 mmol/L (98-107); Estimated GFR 95.77 (mL/min/1.73m2); Glucose 107 mg/dL (74-106); Potassium 3.5 mmol/L (3.5-5.1); Sodium 140 mmol/L (136-145); Total Protein 7.5 g/dL (6.4-8.2)
[2023-01-26 05:31] VITALS: BP 130/68; PULSE 60; RESP 16; O2SAT 97
== END 2023-01-26 05:31 | disposition home or self-care (01) ==
PROVIDERS: Emergency Provider Emergency Medicine; PCP Family Medicine
DX: K62.5 Hemorrhage of anus and rectum (principal); E80.20 Unspecified porphyria
CPT/HCPCS: 36415; 80053; 86850; 86900; 86901; 99283; 83735; 85025; 85610; 85730; 99282

== ENCOUNTER 2024-06-16 20:50 | Emergency (ER) | payer MEDICAID, SELFPAY ==
[2024-06-16] VITALS (20 sets, daily range): BP systolic 116–143; BP diastolic 69–91; PULSE 53–96; RESP 16–24; TEMP 36.4; O2SAT 94–98
--- NOTE | 2024-06-16 20:45 | RT.EKG_ITS ---
APPROVED REPORT Exam: Resting ECG Reason for Exam: CP Patient Location: E HR:63 bpm ECG Measurements Heart Rate 63 AXIS MS 147 P 34 QRSd 110 QRS 48 QT 407 T 57 QTc 417 Conclusion Sinus rhythm...normal P axis, V-rate 60- 99 Probable left ventricular hypertrophy...multiple LVH criteria No STEMI
--- NOTE | 2024-06-16 20:54 | ED.GENADUL_ITS ---
Discharge Plan Disposition Patient Disposition: Home Discharge Details Clinical Impression: Chest pain, unspecified Primary Care Provider: None,None ED Provider: Napoleon Lowery Home Meds and New Rx's Prescriptions: No Action No Known Home Meds Discharge Instructions Instructions: Chest Pain (DC) Additional Instructions: You were seen in the emergency department for your chest pain. Your blood work showed no sign of heart attack. As we discussed if you pass out or develop chest pain associated with any sweating please return to the emergency department. Otherwise please follow-up with your primary care provider next week. HPI General Date/Time Provider Initiated Documentation: 06/16/24 20:54 . HPI Narrative: MDM This is an overall very Appearing Normothermic and not tachycardic 43-year-old male with nonischemic ECG and several days worth of chest pain for which he will receive troponin testing. No tearing quality to suggest aortic dissection. ECG nonischemic no ST segment abnormalities. No T wave versions. Patient has had no recent fevers to suggest pericarditis. Not hypotensive nor dialysis patient so my suspicion is left tamponade. No fevers to suggest increased risk for pneumonia. Will obtain chest x-ray and labs. Patient is not been vomiting to suggest increased risk for esophageal rupture. No pain out of proportion to suggest necrotizing soft tissue infection. No rash to chest to suggest zoster. No trauma & equal breath sounds so doubt PTX. Positional pain suggestive of pericardititis but ECG reassuring. No murmur. Given no preceding URI symptoms will deffer inflammatory markers. HEART SCORE Chest pain Diagnostic Protocol: [-History/Physical/Gestalt: Slightly Suspicious (0)] [-EKG: Normal and/or unchanged from prior EKG (0)] [-AGE: less than 45 (0)] [-RISK FACTORS: No known risk factors (0)] [-TROPONIN: <= normal limit (0)] - TOTAL SCORE: 0 - Risk Factors: DM, current or recent smoker, HTN, HLD, family hx of CAD, obesity - INTERPRETATION: With a total score of 3 or less, risk of major cardiac event within six weeks 1.7%, likely lower with two negative troponins. [I explained to the patient that the risk of subsequent major cardiac event within 1 month is not 0, however risk predicted to be less than 2%. Patient verbalized understanding, accepts this risk and shared and the decision for discharge with PCP follow-up for further evaluation and management. They understand to return to the ED immediately with any worsening symptoms, new symptoms or other concerns.] HPI This is a 43-year-old male arriving to emergency department via private vehicle in setting of shooting and clicking chest pain. No recent cold symptoms. Says his pain occasionally radiates down his left arm. He has not had any recent fevers. No history of coronary artery disease diabetes hypertension hyperlip idemia. Patient does not know his family history he sees adopted. Says his pain is slightly worse when lying down. Has occasionally been nauseous but has not been vomiting. Denies routine tobacco and ethanol. Occasionally uses marijuana. Exam General: Well-appearing in no acute distress speaking in complete sentences. Head: Normocephalic, atraumatic. Eye: Extraocular eye movements intact. No conjunctival injection. No scleral icterus. Ear, nose, mouth, throat: Grossly normal inspection. Normal voice, handling secretions normally. Neck: Trachea midline. Cardiovascular: Well-perfused distal extremities. Regular rate and rhythm. Respiratory: Nonlabored respiration. Clear lungs bilaterally. Gastrointestinal: Nondistended abdomen. Musculoskeletal: No edema. Moving all 4 extremities spontaneously. Skin: Normal for age and race, grossly normal temperature and turgor. No acute rash. Neurologic: Alert and appropriate, no apparent acute deficits. Psychiatric: Mood and manner are appropriate. Grooming and personal hygiene are appropriate. Related Data Home Medications ?Medication ?Instructions ?Recorded ?Confirmed Unknown [No Known Home Meds] 09/22/19 09/22/19 Allergies Allergy/AdvReac Type Severity Reaction Status Date / Time ibuprofen AdvReac Intermediate porphyria Verified 02/15/18 10:03 sulfamethoxazole (From AdvReac Intermediate porhyria Verified 02/15/18 10:03 Bactrim) trimethoprim (From Bactrim) AdvReac Intermediate porhyria Verified 02/15/18 10:03 General ALAN: 3 Medical Decision Making Quality:SDOH Health Related Social Needs: No Data to Display PFSH All Active Problems (Updated 06/16/24 @ 21:59 by Napoleon Lowery MD) Chest pain, unspecified (Acute) Weight loss (Acute) Nausea and vomiting in adult (Acute) Chronic generalized abdominal pain (Acute) Medical History (Updated 06/16/24 @ 21:59 by Napoleon Lowery MD) Normal colonoscopy (02/15/18) Dr Alonzo, repeat at 49 years of age Schizophrenia Porphyria Unintentional weight loss Surgical History History of esophagogastroduodenoscopy (EGD) (02/15/18) Dr Alonzo, mild reactive changes in stomach, referred back to pcp for further workup, repeat PRN Social History Smoking/Tobacco Use Status: Never Smoking risk assessment performed?: Yes Alcohol Intake: never Drug use: Occasionally Substance use type: marijuana Do you feel safe at home: Yes Do you feel safe in your relationship?: Yes
[2024-06-16 21:09] LABS: Abs Immature Grans 0.04 10^3/uL (0.0-0.06); Absolute Basophil Count 0.06 10^3/uL (0.0-0.2); Absolute Eosinophil Count 0.23 10^3/uL (0.0-0.7); Absolute Lymphocyte Count 3.44 10^3/uL (1.2-3.4); Absolute Monocyte Count 0.82 10^3/uL (0.1-0.8); Basophils % 0.5 %; Eosinophils % 2.1 %; HCT 42.9 % (40.0-50.0); HGB 15.2 g/dL (13.5-17.5); Immature Grans % 0.4 %; Lymphocytes % 31.2 %; MCH 31.8 pg (27.0-33.0); MCHC 35.4 % (32.0-36.0); MCV 90 fL (80-95); MPV 9.5 fL (8.0-11.0); Monocytes % 7.4 %; Neutrophils % 58.4 %; Platelet Count 291 10^3/uL (130-400); RBC 4.78 10^6/uL (4.36-5.78); RDW 12.1 % (11.8-14.1); RDW-SD 39.9 fL; WBC 11.02 10^3/uL (4.4-10.8)
[2024-06-16 21:13] LABS: Absolute Neutrophil Count 6.44 10^3/uL (1.2-6.7)
[2024-06-16] MEDS: Famotidine 20 MG/2 ML VIAL 40 MG IVP (21:21)
[2024-06-16] MEDS: Mylanta Suspension 30 ML CUP PO (21:21)
[2024-06-16 21:26] LABS: Anion Gap 8.4 mmol/L (3-11); BUN 11 mg/dL (7-18); CO2 30.6 mmol/L (21.0-32.0); CREATININE 1.1 mg/dL (0.70-1.30); Calcium 9.3 mg/dL (8.5-10.1); Chloride 103 mmol/L (98-107); Estimated GFR 84.89 (mL/min/1.73m2); Glucose 105 mg/dL (74-106); Potassium 3.5 mmol/L (3.5-5.1); Sodium 142 mmol/L (136-145); Troponin I 5 ng/L (<or=76)
[2024-06-16] MEDS: Normal Saline 50 ML 200 ML (21:26)
--- NOTE | 2024-06-16 21:40 | DI.RAD_ITS ---
Exam(s) XR PORTABLE CHEST AP EXAM: XR PORTABLE CHEST AP CLINICAL HISTORY: Chest pain TECHNIQUE: 2D digital imaging was performed of the chest. Two images were obtained. AP views were obtained. COMPARISON: CR XR CHEST 2V PA LATERAL from 05/17/2018 FINDINGS: MEDIASTINUM: Normal. HEART: Normal. PULMONARY VASCULATURE: Normal. LUNGS: Clear. PLEURAL SPACE: No pleural effusion or pneumothorax. BONE:Within normal limits for the patient's age. OTHER FINDINGS:Normal. IMPRESSION: No acute pulmonary findings. DATA REPOSITORY: RADIATION DOSE DELIVERED:
--- NOTE | 2024-06-16 22:23 | DI.VRAD_ITS ---
PROCEDURE INFORMATION: Exam: XR Chest Exam date and time: 06/16/2024 9:36 PM Age: 43 years old Clinical indication: Chest pressure; Chest pain TECHNIQUE: Imaging protocol: Radiologic exam of the chest. Views: 1 view. COMPARISON: CR XR CHEST 2V PA LATERAL 05/17/2018 12:19 PM FINDINGS: Lungs: Unremarkable. No consolidation. Pleural spaces: Unremarkable. No pleural effusion. No pneumothorax. Heart/Mediastinum: Unremarkable. No cardiomegaly. Bones/joints: Unremarkable. IMPRESSION: No acute findings. Dictated and Authenticated by: Mila White MD. Orderin Beverley Bender MD
[2024-06-16 22:25] LABS: Troponin I 4 ng/L (<or=76)
== END 2024-06-16 22:41 | disposition home or self-care (01) ==
PROVIDERS: Emergency Provider Emergency Medicine
DX: R07.9 Chest pain, unspecified (principal)
CPT/HCPCS: 36415; 80048; 93005; 96374; 99284; 71045; 84484; 85025; 93010; 99283